=== PATIENT | female | born 1990 | race Caucasian/White ===

== ENCOUNTER → 2020-08-28 | Outpatient (CLI) | payer OTHER ==
[~2020-08-28] MED LIST: IRON325 PO; SPRINTEC1 EACH PO
== END ==
LOC: M.LAB 17:30
PROVIDERS: ATTEND Surgery
DX: Z01.812 Encounter for preprocedural laboratory examination (principal); Z20.828 Contact with and (suspected) exposure to other viral communicable diseases; K80.20 Calculus of gallbladder without cholecystitis without obstruction

== ENCOUNTER → 2020-09-01 | Day surgery (SDC) | payer OTHER ==
[~2020-09-01] MED LIST changes: +PERCOCET 5-3251 EACH PO
[2020-09-01 06:58] LABS: HEMATOCRIT 37.1 % (37.0-47.0); HEMOGLOBIN 12.2 gm/dL (12.0-15.0)
--- NOTE | 2020-09-03 10:50 | OP ---
[address] [address] OPERATIVE REPORT Name: RADAMES MORRISSEY Giancarlo Room: [facility]#: [id number] Admission: 09/01/20 Attend Phys: Sarkis Fritz Discharge: Date of : 86 Report #: [id number] THIS REPORT FOR: //name// cc: DIANE Soto family physician/PCP DIANE - Brittany family physician/PCP ~ CC: DIANE physician/PCP Nikolai Rothman DICTATED BY: Josh Ford DO DATE OF SERVICE: 09/01/2020 IDENTIFYING DATA: A 29-year-old female. PREOPERATIVE DIAGNOSES: Cholelithiasis and biliary colic. POSTOPERATIVE DIAGNOSES: Cholelithiasis and biliary colic. PRIMARY SURGEON: Nikolai Rothman DO CO-SURGEON: Josh Ford DO, PGY4 ORACLE APPLICATIONS ANALYST: TODD Amezcua. OPERATION PERFORMED: Laparoscopic cholecystectomy. ANESTHESIA: Combined general regional TAP blocks and local. ESTIMATED BLOOD LOSS: 10 mL. SPECIMENS: Gallbladder. COMPLICATIONS: None. FINDINGS: Large dilated gallbladder, solitary greater than 1 cm stone, short cystic duct and 2 cystic arteries. INDICATIONS FOR PROCEDURE: The patient is a pleasant 29-year-old female who presented to the office with chief complaint of a 1-2 week history of right upper quadrant abdominal pain and postprandial meal pain. Pain is aggravated by fried and fatty foods. She was noted to have cholelithiasis on abdominal ultrasound. We recommended laparoscopic cholecystectomy as an outpatient. Full discussion of procedure, alternatives, risks, and possible complications were discussed including but not limited to bleeding, infection, postoperative pain, scarring, conversion to open procedure, hernia, need for further surgery, bile leak, biloma, abscess, cardiopulmonary failure [place] [address] OPERATIVE REPORT Name: RADAMES MORRISSEY Room: [facility]#: [id number] Admission: 09/01/20 Attend Phys: Sarkis Fritz Discharge: Date of : 86 Report #: [id number] voiced understanding of these risks and agreed to proceed with surgery. OPERATIVE TECHNIQUE: The patient was again seen and examined in the preoperative holding area. A fully informed written consent was obtained. Preoperative antibiotics were administered. The patient was subsequently transported to the operating room suite and placed on the operating room table in a comfortable supine position. At this time, Anesthesia induced general anesthesia via endotracheal intubation, this is successful. SCDs were placed to bilateral lower extremity calves. Grounding pad was placed to the right lateral thigh. Arms were outstretched on arm boards. All extremities and joints were padded and protected. Upper extremity Ros Hugger was placed across the patient's chest. Safety strap was placed across the patient's lap as well as warm blankets. We began by prepping the patient in the usual sterile fashion. A timeout was performed prior to the onset of procedure. We made a horizontal incision inferior to the umbilicus using open Lior technique. We dissected down through the subcutaneous tissue until we reached the level of fascia. Fascia was scored with electrocautery, grasped with bilateral Kochers, elevated, and further transected. The peritoneum was entered bluntly using a hemostat. Finger sweep was performed to ensure there was no bowel adhesions. Once this was performed, 2-0 Vicryl stay sutures were placed over the fascial edges and a 12 mm Lior trocar was placed in the abdomen. Abdomen was insufflated first using low flow and then high flow. Once the abdomen was fully inflated, a 0 degree 5 mm laparoscopic camera was placed into the abdomen. Abdomen was surveyed. The liver appeared very healthy. Stomach and duodenum were nondistended. There were no signs of acute inflammation. Next, an additional 5 mm trocar was placed in the epigastric region and 2 additional 5 mm trocars were placed in the right upper quadrant under direct visualization. The gallbladder was grasped with a locking wavy grasper and elevated anteriorly and cephalad. Karoline's pouch was found and grasped with a blunt grasper through the midline port and electrocautery was used in the working port in the epigastric region. The peritoneum was scored located in the anterior gallbladder wall. Dissection was then carried out laterally to the liver edge opening up the peritoneal attachments. This was then performed medially high on the gallbladder careful to stay above the cystic artery. Once this was performed, the peritoneum was swept posteriorly. The patient had excellent visualized anatomy. The common hepatic, common bile duct, right hepatic artery and cystic ducts were all visible. Once the peritoneal attachments were taken down using a [place] grasper and electrocautery, the cystic duct was dissected out circumferentially. The cystic artery was noted to be just posterior to this and was also dissected out circumferentially. A critical view of safety was obtained and the cystic artery was transected after placing 5 mm clips, 2 proximally and 2 distally. Next, the cystic duct was clipped [address] [place] [address] OPERATIVE REPORT Name: RADAMES MORRISSEY Room: [facility]#: [id number] Admission: 09/01/20 Attend Phys: Sarkis Fritz Discharge: Date of : 86 Report #: [id number] proximally, once distally near the gallbladder and this was also transected using laparoscopic scissors. An additional 5 mm clip was placed on a very small posterior cystic artery that was coursing posterolateral into the gallbladder. Pictures were obtained of both pre and post-clip application to these arteries and ducts. Once the artery and duct were fully transected, laparoscopic suction irrigation was used at that time to suction out the right upper quadrant and reevaluate our clips. The gallbladder was then taken off of the gallbladder fossa using electrocautery. Once the gallbladder were freed, the gallbladder was placed into the 10 mm EndoCatch bag through the umbilical trocar. We then reevaluated the liver bed and had excellent control of hemorrhage with electrocautery. Again, the right upper quadrant was suctioned and irrigated. The patient was placed supine out of the reverse Trendelenburg with left side down. Once the patient was supine, all the trocars were removed from the abdomen and the abdomen was desufflated under direct visualization. Once the abdomen was fully desufflated, camera was removed as was the 12 mm Lior and the gallbladder was removed through the umbilical incision in the EndoCatch bag. The gallbladder was then passed off to the back table to be sent for pathology. There was a large solitary gallstone palpated within the gallbladder. Next, the fascia at the umbilical site was closed in a [id number] fashion using a 0 Vicryl suture and the previously placed 0 Vicryl stay sutures were tied together as well. A layered closure was then performed at the umbilicus using interrupted 3-0 Vicryl of the deep subcutaneous and dermal layers and the skin was closed using a running subcuticular 4-0 Monocryl. The additional trocar sites were closed in interrupted fashion using a subcuticular 4-0 Monocryl. The patient tolerated the procedure well. A 30 mL of 0.5% Marcaine was used for local anesthetic. Abdomen was cleansed with wet and dry lap. Sterile dressing was applied. The patient was transported to the PACU in stable condition after brief recovery from anesthesia with plans to discharge home. Follow up in the office with Dr. Rothman in 1 week. <ELECTRONICALLY SIGNED> By: Nikolai Rothman DO 09/03/20 1050 [id number] [id number] Rothman DO /nt
--- NOTE | 2020-09-05 17:06 | PATH ---
[address] [address] PATHOLOGY RPT PROCEDURE Name: RADAMES MCKEON Room: [facility]#: [id number] Admission: 09/01/20 Date of : 86 Discharge: Report #: [id number] Path Case #: [id number] [facility] Accession Number: [id number] . 01 Material submitted: . gallbladder - GALLBLADDER AND CONTENTS . 01 Clinical history: . CHOLELITHIASIS . 02 Diagnosis: Gallbladder and contents: - Chronic cholecystitis, cholesterolosis and cholelithiasis. (BETTINA/db; 09/05/2020) LBQ 09/05/2020 1450 Local . 02 Electronically signed: . Kaushik Nuno MD, Pathologist NPI- [id number] . 01 Gross description: . The specimen is received in formalin labeled "Radames Mckeon, gallbladder and contents" and consists of an intact pink-green gallbladder measuring 7.0 x 3.5 x 2.3 cm. The margin is inked black. Opening reveals a lumen filled with green bile and 2 smooth oval yellow-green calculi measuring 1.5 cm and 1.8 cm. The mucosa is green with yellow stippling with an average wall thickness of 0.1 cm. No masses are identified. Associate Merchandiser sections are submitted in A1. (SDY; 09/04/2020) SYU/SYU 09/04/[address] [place] [address] . 02 Pathologist provided ICD-10: K80.10, K82.4 . 02 CPT . 099800 Specimen Comment: A courtesy copy of this report has been sent to [phone] Performed at: [address], [place], [place] [id number] MD Conrad Lee MD Phone: [phone] Performed at: [address] [facility] [address] [place], [place] [id number] MD Kaushik Nuno MD Phone: [phone]
== END | disposition home or self-care (01) ==
LOC: M.SUR 06:00
PROVIDERS: ATTEND Surgery
DX: K80.10 Calculus of gallbladder with chronic cholecystitis without obstruction (principal); J45.909 Unspecified asthma, uncomplicated; D64.9 Anemia, unspecified; Z79.899 Other long term (current) drug therapy; Z88.0 Allergy status to penicillin; Z98.890 Other specified postprocedural states

== ENCOUNTER → 2021-01-26 | Outpatient (CLI) | payer OTHER | LOC: M.MRI 14:14 | PROVIDERS: ATTEND Family Medicine | DX: M19.012 Primary osteoarthritis, left shoulder (principal); G89.29 Other chronic pain; R60.0 Localized edema ==